=== PATIENT | female | born 1950 | race Caucasian/White ===

== ENCOUNTER 2017-01-17 21:26 | Emergency (ER) | payer OTHER ==
[2017-01-17] MEDS ORDERED: IPRATROPIUM/ALBUTEROL SULFATE 3 ML AMPUL.NEB NEB ONE ×2 (21:54→22:02)
[2017-01-17] MEDS ORDERED: BUDESONIDE 0.5MG/2ML AMPUL.NEB NEB ONE (21:55)
[2017-01-17] MEDS ORDERED: methylPREDNISolone SOD SUCC 125 MG/2 ML VIAL IVP ONE (22:02)
[2017-01-17] MEDS ORDERED: 0.9 % SODIUM CHLORIDE 1,000 ML IV ONE (22:28)
[2017-01-17] MEDS ORDERED: 0.9 % SODIUM CHLORIDE 1,000 ML IV SCH (22:30)
[2017-01-17 22:35] LABS: eGFR (African) > 60; eGFR (Non-African) > 60
[2017-01-17 22:53] LABS: BASOPHILS % 0.4 (0.0-1.5); EOSINOPHILS % 1.7 % (0.0-6.8); MEAN CORPUSCULAR HEMOGLOBIN 27.3 pg (28.0-34.0); MEAN CORPUSCULAR VOLUME 84.3 fl (80.0-100.0); MONOCYTES % 3.4 % (0.0-11.0); NEUTROPHILS # 10.6 # k/uL (1.4-7.7)
[2017-01-17] MEDS ORDERED: BUDESONIDE 0.5MG/2ML AMPUL.NEB NEB SCH (23:00)
[2017-01-17] MEDS ORDERED: CEPHALEXIN 250 MG CAPSULE PO ONE (23:26)
[2017-01-18 00:14] VITALS: BP 149/60
--- NOTE | 2017-01-18 03:54 | ED Physician Documentation ---
Upper Respiratory Symptoms - HISTORIAN Historian: patient - HPI Stated Complaint: cough, soa Chief Complaint: Cough/ Upper Respiratory Additional Information: with cold Onset: days ago (1) Duration: sudden-Onset Context: multiple patients, same sx. denies: recent foreign travel, insect bite (s), tick(s), recent chemotherapy Severity: moderate Associated Symptoms: runny nose, shortness of breath Worsened by Deep Breath: Yes Further Comments: no - ROS CONST/EYES: denies: weakness, eye redness, eye itching CVS/RESP: shortness of breath LYMPH: denies: leg swelling, rash, swollen glands, ankle swelling GI/: none NEURO/PSYCH: denies: fainting, dizziness, confusion, anxiety, depression MS/SKIN: denies: joint pain, muscle aches, rash - PAST HX Lung Disease: COPD PE Risk Factors: hypertension Other History: CHF, diabetes Type 2, hypertension, other (cad) Surgeries/Procedures: BLT Immunizations: referred to PCP Allergies/Adverse Reactions: Allergies Allergy/AdvReac Type Severity Reaction Status Date / Time No Known Allergies Allergy Verified 01/17/17 21:46 Home Medications: Ambulatory Orders Medication Instructions Recorded Unobtainable [Unobtainable] 01/17/17 - SOCIAL HX Smoking History: non-smoker Alcohol Use: none Drug Use: none - FAMILY HX Family History: no significant history - VITAL SIGNS Vital Signs: Vital Signs Temp Pulse Resp BP Pulse Ox 98.2 F 90 16 149/60 95 01/17/17 23:45 01/17/17 23:45 01/17/17 23:45 01/17/17 23:45 01/17/17 23:45 - REVIEWED ASSESSMENTS Nursing Assessment Reviewed: Yes Vitals Reviewed: Yes Progress - Results/Orders Results/Orders: cbc, cmp, cxr ordered - Progress Progress: pt. given 1 liter NS, 125 mg solu medrol ivp and duoneb/pulmicort neb. txs in er with sig. improvement in symptoms Critical Care Note - Critical Care Note Total Time (mins): 0 ED Results Lab/Radiology - Lab Results Lab Results: Lab Results 01/17/17 01/17/17 01/17/17 22:14 22:14 22:14 WBC RBC Hgb Hct MCV MCH MCHC RDW Plt Count Neut % (Auto) Lymph % (Auto) [place] % (Auto) Eos % (Auto) Baso % (Auto) Neut # (Auto) Lymph # (Auto) [place] # (Auto) Eos # (Auto) Baso # (Auto) Reactive Lymphs % Reactive Lymphs # PT 11.2 Seconds Seconds (9.4-11.6) INR 1.07 (0.9-1.2) APTT 23.1 Seconds L Seconds (24.5-32.8) Sodium 137 mmol/L mmol/L (137-145) Potassium 4.4 mmol/L mmol/L (3.5-5.1) Chloride 101 mmol/L mmol/L (98-107) Carbon Dioxide 24 mmol/L mmol/L (22-30) BUN 17 mg/dL mg/dL (7-17) Creatinine 0.90 mg/dL mg/dL (0.52-1.04) Estimated Creat Clear 117 Est GFR ( Amer) > 60 (60 - ) Est GFR (Non-Af Amer) > 60 (60 - ) Glucose 191 mg/dL H mg/dL (74-106) Calcium 8.9 mg/dL mg/dL (8.4-10.2) Total Bilirubin 0.5 mg/dL mg/dL (0.2-1.3) AST 33 U/L U/L (15-46) ALT 31 U/L U/L (13-69) Alkaline Phosphatase 91 U/L U/L (38-126) NT-Pro-B Natriuret Pep 794.0 pg/mL H pg/mL (15.0-125.0) Total Protein 8.5 g/dL H g/dL (6.3-8.2) Albumin 4.2 g/dL g/dL (3.5-5.0) 01/17/17 22:14 WBC 13.60 K/ul H K/ul (4.00-12.00) RBC 4.26 M/ul M/ul (3.90-5.20) Hgb 11.6 g/dL L g/dL (12.0-16.0) Hct 35.9 % % (34.5-46.5) MCV 84.3 fl fl (80.0-100.0) MCH 27.3 pg L pg (28.0-34.0) MCHC 32.3 g/dL g/dL (30.0-36.0) RDW 14.4 % H % (11.3-14.3) Plt Count 174 K/mm3 K/mm3 (130-400) Neut % (Auto) 78.1 % % (39.0-79.0) Lymph % (Auto) 14.6 % L % (16.0-50.0) [place] % (Auto) 3.4 % % (0.0-11.0) Eos % (Auto) 1.7 % % (0.0-6.8) Baso % (Auto) 0.4 (0.0-1.5) Neut # (Auto) 10.6 # k/uL H # k/uL (1.4-7.7) Lymph # (Auto) 2.0 # k/uL # k/uL (0.6-4.0) [place] # (Auto) 0.5 # k/uL # k/uL (0.0-0.9) Eos # (Auto) 0.2 # k/uL # k/uL (0.0-0.6) Baso # (Auto) 0.0 # k/uL # k/uL (0.0-0.5) Reactive Lymphs % 1.8 % % (0.0-5.0) Reactive Lymphs # 0.2 # k/uL # k/uL (0.0-0.8) PT INR APTT Sodium Potassium Chloride Carbon Dioxide BUN Creatinine Estimated Creat Clear Est GFR ( Amer) Est GFR (Non-Af Amer) Glucose Calcium Total Bilirubin AST ALT Alkaline Phosphatase NT-Pro-B Natriuret Pep Total Protein Albumin - Radiology Radiology Impressions: cxr clear of infiltrate - Orders Orders: ED Orders Category Date Time Status Place IV Lock 1T Care 01/17/17 22:02 Active CHEST 1 VIEW [RAD] Routine Exams 01/17/17 Ordered CBC/PLATELET/DIFF Routine Lab 01/17/17 22:14 Completed CMP Routine Lab 01/17/17 22:14 Completed NT-proBNP Routine Lab 01/17/17 22:14 Completed PT [PT-INR] Routine Lab 01/17/17 22:14 Completed PTT Routine Lab 01/17/17 22:14 Completed URINALYSIS Routine Lab 01/17/17 22:03 Ordered 0.9 % Sodium Chloride [Normal Saline] 1,000 ml Med 01/17/17 22:30 Discontinued IV .Q1H 0.9 % Sodium Chloride [Normal Saline] 1,000 ml Med 01/17/17 22:28 Discontinued IV .STK-MED Budesonide [Pulmicort] Med 01/17/17 21:55 Discontinued 0.5 mg NEB .STK-MED ONE Budesonide [Pulmicort] Med 01/17/17 23:00 Discontinued 0.5 mg NEB BID Cephalexin [Keflex] Med 01/17/17 23:26 Discontinued 1,000 mg PO NOW ONE Ipratropium/Albuterol Sulfate [Duoneb] Med 01/17/17 21:54 Discontinued 3 ml NEB .STK-MED ONE Ipratropium/Albuterol Sulfate [Duoneb] Med 01/17/17 22:02 Discontinued 3 ml NEB NOW ONE methylPREDNISolone SOD SUCC [Solu-MEDROL] Med 01/17/17 22:02 Discontinued 125 mg IVP NOW ONE Upper Respiratory Symptoms - EXAM General Appearance: alert, moderate distress EENT: eyes nml inspection, nml ENT inspection, lids & conjunct. nml, PERRL, ear nml, nose nml, pharynx nml. No: pain over sinuses, TM erythema Neck: normal inspection, thyroid normal, supple Respiratory: no pain on inspiration, speaks full sentences, wheezes. No: respiratory failure, retractions, splinting, accessory muscle use, rales, stridor Abdomen: non-tender, no organomegaly, nml bowel sounds, no distention CVS: reg rate & rhythm, heart sounds normal, equal pulses, no murmur, no gallop , PMI nml, no JVD, no friction rub Skin: color nml, no rash, warm,dry Extremities: non-tender, normal range of motion, no evidence of injury Neuro/Psych: oriented x3, neuro intact, mood/affect nml Discharge Clincal Impression: Asthmatic bronchitis Qualifiers: Asthma severity: mild intermittent Asthma complication type: with acute exacerbation Qualified Code(s): J45.21 - Mild intermittent asthma with (acute) exacerbation Referrals: Maci Arenas PLUG GROWER [Primary Care Provider] - 2 Days Comments: discharged in stable condition with steroid taper, keflex 500 mg 2 capsules twice daily for 1 week and instructions to increase albuterol hfa to 2 puffs q 4 hours Condition: Stable Disposition: 01 HOME, SELF-CARE Decision to Admit: NO Decision Time: 23:40
--- NOTE | 2017-01-18 06:50 | Diagnostic Imaging Report ---
MERLENE CANALES [facility] [address] [facility].[address] [address] Report Submission Date: Jan 17, 2017 10:34:04 PM CDT Patient Study Name: HERMAN KEEN Date: Jan 17, 2017 10:13:23 PM CDT Modality Type: CR Gender: F Description: CHEST : 54 Institution: [facility] Physician: MERLENE CANALES Ap portable upright radiographs of the chest Clinical history: Short of breath Technique: anterior /posterior portable upright Findings: The lung murillo are clear. The lung murillo are hyperinflated .The heart and mediastinal structures are normal. The bony thorax is unremarkable. No pneumothorax or pleural effusion is seen. Impression: No acute pulmonary disease Electronically signed on Jan 17, 2017 10:34:04 PM CDT by: Fritz DUPREE
== END 2017-01-17 23:45 | disposition home or self-care (01) ==
LOC: ED 21:26
DX: J45.21 Mild intermittent asthma with (acute) exacerbation (principal)
CPT/HCPCS: 71010; 80053; 83880; 85025; 85610; 85730; J2930; J7030; J7626; 96361; 96374; 99283; S1016

== ENCOUNTER 2017-06-23 13:23 | Emergency (ER) | payer OTHER ==
[2017-06-23 13:45] VITALS: BP 134/66
[2017-06-23] MEDS: ACETAMINOPHEN 500 MG TABLET PO ONE (14:01)
--- NOTE | 2017-06-23 14:02 | ED Physician Documentation ---
Upper Respiratory Symptoms - HISTORIAN Historian: patient - HPI Stated Complaint: cough, dry heaves Chief Complaint: Cough/ Upper Respiratory Onset: days ago (3) Context: denies: recent foreign travel, insect bite(s), tick(s), recent chemotherapy, multiple patients, same sx, other Severity: moderate Associated Symptoms: fever, chills, earache, runny nose, sinus pain, sinus drainage, sore throat, productive cough, headache Further Comments: yes (66 year old female patient presents with flu like symptoms - fever, body aches, cough, upset stomach, diarrhea x 1, congestion and sore throat. States symptoms started 3 days ago. Has not taken any OTC medications.) - ROS CONST/EYES: denies: weakness, eye redness, eye itching, other CVS/RESP: none LYMPH: denies: leg swelling, rash, swollen glands, ankle swelling, other GI/: none, other NEURO/PSYCH: denies: fainting, dizziness, confusion, anxiety, depression, other MS/SKIN: denies: joint pain, muscle aches, rash, other - PAST HX Lung Disease: none PE Risk Factors: hypertension Other History: diabetes Type 2, other (HLD, hypothyroidism) Allergies/Adverse Reactions: Allergies Allergy/AdvReac Type Severity Reaction Status Date / Time No Known Allergies Allergy Verified 06/23/17 13:25 Home Medications: Ambulatory Orders Medication Instructions Recorded Aspirin [Adult Low Dose Aspirin EC] 81 mg PO DAILY 06/23/17 Isosorbide Mononitrate [Imdur] 30 mg PO DAILY 06/23/17 Levothyroxine Sodium [Unithroid] 50 mcg PO DAILY 06/23/17 Lisinopril [Zestril] 30 mg PO DAILY 06/23/17 Metformin HCl [Glucophage] 500 mg PO BID 06/23/17 Metoprolol Tartrate [Lopressor] 100 mg PO BID 06/23/17 Simvastatin [Zocor] 20 mg PO HS 06/23/17 - SOCIAL HX Smoking History: cigarettes - FAMILY HX Family History: denies: none - VITAL SIGNS Vital Signs: Vital Signs Temp Pulse Resp BP Pulse Ox 97.5 F L 67 18 134/66 97 06/23/17 14:13 06/23/17 14:13 06/23/17 14:13 06/23/17 14:13 06/23/17 14:13 - REVIEWED ASSESSMENTS Nursing Assessment Reviewed: Yes Vitals Reviewed: Yes Progress - Progress Progress: Rapid influenza swabs not available. Will send respiratory viral panel. reviewed discharge instructions with patient, verbalized understanding. ED Results Lab/Radiology - Radiology Radiology Impressions: Call the ER or lab tomorrow afternoon after 2 pm for the results of your viral panel [phone] A virus cannot be treated with antibiotics. Rest Have plenty of sleep and rest. Stay away from others while you have a cold or flu. Take simple painkillers Such as Tylenol or ibuprofen, to help relieve headaches, muscles aches and pains and fever. Keep hydrated (drink plenty of fluids) This will help keep your throat moist and replace fluid lost due to a fever and sweating. Plenty of water is best. Avoid caffeine and alcohol as they will make you more dehydrated. Eat soft food If you have a sore throat soft foods are easier to swallow. Foods such as chicken soup may help a sore throat and reduce mucous. marble supervisor an over the counter decongestant such as pseudoped, dayquil and Nyquil at your pharmacy. You may want to try Vicks rub on your chest and/or feet. ( Caution: Dayquil and Nyquil contain 325mg of Tylenol/acetaminophen per tablespoon) Cough drops as needed for cough and sore throat. Increase your fluid intake juices, hot tea, non-caffeinated beverages Vitamin C may be helpful in decreasing the length of your cold. Use a humidifier in the room where you sleep. You can also sit in a steam filled bathroom 1-2 times a day. Tylenol every 4 hours 650mg -1000mg (do not exceed 4000mg in 24 hours) as needed for fever, pain and body aches. Alternate with Ibuprofen Ibuprofen 600-800mg every 6 hours as needed for fever, pain and body aches. See your primary care doctor if your symptoms become worse or do not improve in the next 3-4 days. - Orders Orders: ED Orders Category Date Time Status RESPIRATORY VIRAL PROFILE Stat Lab 06/23/17 13:55 Received Acetaminophen [Tylenol Extra Strength] Med 06/23/17 13:53 Discontinued 1,000 mg PO NOW ONE Upper Respiratory Symptoms - EXAM General Appearance: no acute distress, alert EENT: eyes nml inspection, nml ENT inspection, lids & conjunct. nml, PERRL, ear nml, nose nml, pharynx nml, airway nml Respiratory: no resp. distress, breath sounds nml, no pain on inspiration, speaks full sentences, no pleuritic chest pain Abdomen: non-tender, no organomegaly, nml bowel sounds, no distention CVS: reg rate & rhythm, heart sounds normal, equal pulses, no murmur, no gallop , PMI nml, no JVD, no friction rub, 24 Skin: color nml, no rash, warm,dry Extremities: non-tender, normal range of motion, no evidence of injury, no edema , J, [employer]ER Neuro/Psych: oriented x3, neuro intact, mood/affect nml, CN's nml as tested Discharge Clincal Impression: Influenza Referrals: Maci Arenas [employer]INEERING TEACHER [Primary Care Provider] - 2 Days Condition: Stable Disposition: 01 HOME, SELF-CARE Decision to Admit: NO Decision Time: 14:02
[2017-06-23 23:11] LABS: ADENOVIRUS DNA NEGATIVE (NEGATIVE); SOURCE: NASOPHARYNGEAL SWAB
== END 2017-06-23 14:13 | disposition home or self-care (01) ==
LOC: ED 13:23
DX: J09.X9 Influenza due to identified novel influenza A virus with other manifestations (principal); I10 Essential (primary) hypertension; E78.5 Hyperlipidemia, unspecified; E03.9 Hypothyroidism, unspecified; F17.210 Nicotine dependence, cigarettes, uncomplicated
CPT/HCPCS: 87486; 87581; 87633; 87798; 99283